=== PATIENT | female | born 1940 | race Caucasian/White ===

== ENCOUNTER 2019-03-11 13:23 | Inpatient (IN) | payer MEDICARE ==
[~2019-03-11] VITALS: Ht 165.1 cm; Wt 56.7 kg
[2019-03-11 14:25] LABS: BASOPHILS 0.1 % (0-2); HEMATOCRIT 39.7 % (36.0-48.0); HEMOGLOBIN 13.2 g/dL (12-16); IMMATURE GRANULOCYTES 0.4 % (0-5); LYMPHOCYTES 9.8 % (15-50); MCH 30.7 pg (26.0-34.0); MCHC 33.2 g/dL (31.0-37.0); MCV 92.3 fL (80.0-100.0); MEAN PLATELET VOLUME 8.6 fL (7.4-10.4); MONOCYTES 5.9 % (2-11); NEUTROPHILS 82.8 % (40-80); WBC 11.3 10x3/uL (4.8-10.8)
[2019-03-11 14:29] LABS: ALBUMIN 3.2 g/dL (3.4-5.0); ALKALINE PHOSPHATASE 69 U/L (46-116); ALT (SGPT) 28 U/L (10-68); BILIRUBIN - TOTAL 0.71 mg/dL (0.2-1.3); CALC OSMOLALITY 287 mosm/kg (275-300); CALCIUM 8.5 mg/dL (8.5-10.1); CARBON DIOXIDE 33.5 mmol/L (21.0-32.0); CHLORIDE - SERUM 107 mmol/L (98-107); CREATININE - SERUM 0.6 mg/dL (0.6-1.3); GLUCOSE 92 mg/dL (74-106); POTASSIUM - SERUM 4.3 mmol/L (3.5-5.1); PROTEIN - SERUM 5.7 g/dL (6.4-8.2); SODIUM 144 mmol/L (136-145); UREA NITROGEN 14 mg/dL (7-18); eGFR NON AFRICAN AMERICAN > 90 mL/min (90-120)
--- NOTE | 2019-03-11 14:31 | NUR ---
FALL BRACLET APPLIED AND YELLOW STAR APPLIED TO DOOR TO INDICATE PT IS FALL RISK
[2019-03-11] MEDS ORDERED: COREG6.25 MG PO (14:33)
[2019-03-11] MEDS ORDERED: ULTRAM50 MG PO (14:33)
[2019-03-11] MEDS ORDERED: TRAZODONE HCL150 MG PO (14:34)
[2019-03-11] MEDS ORDERED: LOMOTIL 2.5-0.1 EAC1 PO (14:34)
[2019-03-11 14:35] LABS: PLATELET COUNT 215 10x3/uL (130-400)
[2019-03-11] MEDS ORDERED: RESTORIL15 MG PO (14:35)
[2019-03-11] MEDS ORDERED: KLONOPIN0.5 MG PO (14:35)
[2019-03-11] MEDS ORDERED: LEXAPRO10 MG PO (14:35)
[2019-03-11] MEDS ORDERED: ROBAXIN500 MG PO (14:35)
[2019-03-11] MEDS ORDERED: BENTYL10 MG PO (14:36)
[2019-03-11] MEDS ORDERED: OXYBUTYNIN CHLOR5 MG PO (14:37)
[2019-03-11 14:50] LABS: APTT 28.7 SECONDS (22.8-39.4); INR 1.07 (0.85-1.17); PROTIME 13.4 SECONDS (11.6-15.0)
--- NOTE | 2019-03-11 16:25 | NUR ---
1620 PLACED 16FR GOMEZ CATH AND SENT URINE TO LAB,. PT TOLERATED WELL SURGON IN ROOM.
[2019-03-11 20:00] VITALS: BP 131/64
--- NOTE | 2019-03-11 23:21 | HP ---
PATIENT: GIANNA ANTUNEZ MEDICAL RECORD: [id number] ACCOUNT: [id number] LOCATION:D.[facility] [place] : 38 ADMISSION DATE: 03/11/19 PCP: ROJELIO LOO MD HISTORY AND PHYSICAL EXAMINATION DATE OF ADMISSION: 03/11/2019. CHIEF COMPLAINT: Hip pain. HISTORY OF PRESENT ILLNESS: This is a 78-year-old white female who drove herself to our office today. The patient is complaining of pain in her left hip. She was at [facility] this morning and was reaching up to take something off the shelf; the object started falling and hit her. She somehow lost her balance and fell to the floor injuring her left hip. The patient states that she was taken to her car in a wheelchair, but later understand 911 was called and they got there after she left. She drove her car to our office. She was basically picked up out of her car and brought into x-ray room where x-rays showed a left femoral neck fracture. EMS was then called to our office. She was transported to [facility] to be evaluated in the ER. CT of the pelvis without contrast showed a fracture of the left femoral neck with superior and anterior translation of distal fracture fragment. She is admitted into the hospital for treatment. PAST MEDICAL AND SURGICAL HISTORY: She has anxiety, reflux, hypertension, arthritis, insomnia, spinal stenosis in her lumbar spine from MRI in May 2013 and she has a redundant colon. PAST SURGICAL HISTORY: Appendectomy, hysterectomy, cataract extraction, benign breast biopsy and surgery, subtotal colectomy by Dr. Chávez on 11/03/2014 were 95 cm of colon was removed. She has had a total knee arthroplasty, right total hip arthroplasty, and cholecystectomy. ALLERGIES: SULFA. HOME MEDICATIONS: Lomotil 2 tablets 3 times a day p.r.n. diarrhea, carvedilol 3.125 one p.o. b.i.d., oxybutynin 5 mg twice a day, clonazepam 0.5 mg t.i.d. p.r.n. anxiety, methocarbamol 500 mg t.i.d. p.r.n. muscle spasms, escitalopram 20 mg once a day, tramadol 50 mg p.r.n. pain, trazodone 50 mg 1 p.o. at bedtime for sleep, temazepam 30 mg at bedtime for sleep, dicyclomine one capsule by mouth every 6 hours. HABITS: Former smoker. No alcohol or drug use. SOCIAL HISTORY: She is a retired schoolteacher, . Her son has had a long history of schizophrenia. She committed suicide, just in the last couple of months. FAMILY HISTORY: Her parents are . REVIEW OF SYSTEMS: GENERAL: She has had some weight loss due to the stress and anxiety of losing her son. HEENT: No particular sinus or allergy problems. RESPIRATORY: No COPD or emphysema diagnosis. CARDIAC: No history of coronary artery disease. HISTORY AND PHYSICAL [id number] GIANNA ANTUNEZ GASTROINTESTINAL: She had a redundant colon and had chronic constipation. After her subtotal colectomy, she had more of a problem with diarrhea. GENITOURINARY: She has urinary stress incontinence. MUSCULOSKELETAL: She has arthritis with hip and knee replacement. NEUROLOGIC: History of migraines. PSYCHIATRIC: She has depression and anxiety. PHYSICAL EXAMINATION: VITAL SIGNS: Temperature 97.6, pulse 55, respirations 18, blood pressure 135/65, and O2 sat 96%. GENERAL: She is complaining of some pain in her left hip. HEENT: Grossly within normal limits. NECK: Supple. No JVD or bruit. HEART: Regular rate and rhythm without murmur. LUNGS: Clear. ABDOMEN: Soft, nontender to palpation. EXTREMITIES: No edema. She has pain in the left hip. NEUROLOGIC: Essentially unremarkable. LABORATORY DATA: CBC with a white count of 11,300, hemoglobin 13.2, hematocrit 39.7. INR 1.07. Basic metabolic panel was unremarkable. Liver enzymes are unremarkable. Chest x-ray shows no acute process. CT of the abdomen and pelvis with fracture of the left femoral neck with superior and anterior translation of the distal fracture fragment. ASSESSMENT: 1. Fall with left hip fracture. 2. Hypertension. PLAN: She is admitted. Orthopedics has been consulted. She should be okay for surgery which will probably happen tomorrow. TRANSINT:[id number] Voice Confirmation ID: [id number] DOCUMENT ID: [id number] ROJELIO LOO MD at 2321 CC: [id number] DICTATION DATE: 03/11/191756 MUSEUM GUIDE: 03/11/[address] [facility] [address] [place] [address]
[2019-03-12] VITALS: BP 132/64
[2019-03-12 04:00] VITALS: BP 147/66
--- NOTE | 2019-03-12 04:34 | NUR ---
PATIENT IN BED ALERT AND ORENTED ABLE TO VOICE NEEDS AND WANTS TO STAFF. MORPHINE MANAGER DATA WAREHOUSE IN PLACE, LEFT FR WITH NS, FELL AND WAS ADMITTED FORT LEFT HIP FX. NPO. f/c IN PLACE AND PATEN WITH YELLOW/GABRIELE URINE TO BAG. SCD TO RIGHT LEG PLEXIE PULSE TO LEFT, FALL PERCAUSIONS IN PLACE. CALL TO ON CLL DR HADLEY TO INFORM UNABLE TO DO PETERSEN'S TRACTION ORDER TO D/C GIVEN WELL ORDER TO CONSULT RAIL SETTER FOR CLEARANCE FOR SURGERY IN AM. 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 ADMITED VIA DR LOO. O2 AT 2L N/C. RESTING WITH NO NEEDS INCENTIVE SPIROMETRY IN REACH AT BED SIDE CALL LIGHT IN REACH BED LOW.
[2019-03-12 06:32] LABS: BASOPHILS 0.1 % (0-2); EOSINOPHILS 0.8 % (0-7); HEMATOCRIT 41.7 % (36.0-48.0); HEMOGLOBIN 13.7 g/dL (12-16); IMMATURE GRANULOCYTES 0.2 % (0-5); MCH 30.4 pg (26.0-34.0); MCHC 32.9 g/dL (31.0-37.0); MCV 92.7 fL (80.0-100.0); MONOCYTES 7.6 % (2-11); NEUTROPHILS 81.3 % (40-80); PLATELET COUNT 211 10x3/uL (130-400); WBC 8.5 10x3/uL (4.8-10.8)
--- NOTE | 2019-03-12 06:59 | NUR ---
PATIENT C/O NECK AND BACK PAIN THIS AM,
[2019-03-12 07:15] LABS: ALBUMIN 2.7 g/dL (3.4-5.0); ALKALINE PHOSPHATASE 62 U/L (46-116); ALT (SGPT) 26 U/L (10-68); BILIRUBIN - TOTAL 1.17 mg/dL (0.2-1.3); CALC OSMOLALITY 279 mosm/kg (275-300); CALCIUM 8.4 mg/dL (8.5-10.1); CARBON DIOXIDE 29.7 mmol/L (21.0-32.0); CHLORIDE - SERUM 105 mmol/L (98-107); GLUCOSE 112 mg/dL (74-106); POTASSIUM - SERUM 4.1 mmol/L (3.5-5.1); PROTEIN - SERUM 5.5 g/dL (6.4-8.2); SODIUM 140 mmol/L (136-145); UREA NITROGEN 12 mg/dL (7-18)
[2019-03-12 07:24] LABS: CREATININE - SERUM 0.4 mg/dL (0.6-1.3); eGFR NON AFRICAN AMERICAN > 90 mL/min (90-120)
--- NOTE | 2019-03-12 07:58 | NUR ---
PT RESTING IN BED. CO OF NECK/BACK PAIN. EDISON GORDON NOTIFIED DR JEFFRIES. NPO FOR SURGERY. NO S/S OF ACUTE DISTRESS. CL IN PLACE.
--- NOTE | 2019-03-12 08:00 | NUR ---
ADDENDUM TO PREVIOUS NOTE. DR JEFFRIES PUT IN ORDER FOR CERVICAL/SPINE XRAY.
[2019-03-12 08:19] VITALS: BP 154/66
--- NOTE | 2019-03-12 13:44 | NUR ---
DR POTTS HERE TO POSITION PATIENT ON HANA TABLE-SH FEET PADDED WITH CAST PADDING BEFORE PLACING BOOTS ON
--- NOTE | 2019-03-12 15:27 | NUR ---
PT REMAINS ASLEEP, OPA REMAINS IN PLACE
--- NOTE | 2019-03-12 15:32 | NUR ---
PT STIMULATED WITH COLD CLOTH, INITIALLY WITHOUT RESULT. PT DID OPEN HER EYES BUT IMMEDIATELY WENT BACK TO SLEEP.
--- NOTE | 2019-03-12 15:45 | NUR ---
PT BEGINNING TO RESPOND, OPA REMOVED, SPO2 99% ON 6LPM VIA SM.
--- NOTE | 2019-03-12 15:50 | NUR ---
PT SHAKES HEAD "NO" WHEN ASKED IF SHE WAS HAVING ANY PAIN. PT SPO2 NOW 100% ON RA.
[2019-03-12 16:19] VITALS: BP 134/57
--- NOTE | 2019-03-12 18:43 | NUR ---
PT RESTING IN BED. POOR APPETITE. NO S/S OF ACUTE DISTRESS. CL IN PLACE.
[2019-03-12 20:00] VITALS: BP 102/63
--- NOTE | 2019-03-12 20:00 | NUR ---
ALERT CONFUSED RESTING IN BED, DOES NOT REMEMBER HAVING HIP SURGERY TODAY KEEPS SAYING NO THEY ARE GOING TO DO THAT TOMORROW, SHOWED DRESSING ON LEFT HIP, DENIES PAIN ABLE TO MOVE TOES ON LEFT FOOT REPORTS FEELING TOUCH ABOVE KNEE, GOMEZ CATH DRAINING GABRIELE URINE, SEE SHIFT ASSESSMENT, O2 IN USE N/C,RESP UNLABORED, CALL LIGHT IN REACH
[2019-03-13 04:30] VITALS: BP 123/56
[2019-03-13 06:42] LABS: CALC OSMOLALITY 277 mosm/kg (275-300); CALCIUM 7.7 mg/dL (8.5-10.1); CARBON DIOXIDE 30.3 mmol/L (21.0-32.0); CHLORIDE - SERUM 104 mmol/L (98-107); CREATININE - SERUM 0.5 mg/dL (0.6-1.3); GLUCOSE 113 mg/dL (74-106); POTASSIUM - SERUM 4.3 mmol/L (3.5-5.1); SODIUM 140 mmol/L (136-145); eGFR NON AFRICAN AMERICAN > 90 mL/min (90-120)
[2019-03-13 06:43] LABS: UREA NITROGEN 8 mg/dL (7-18)
--- NOTE | 2019-03-13 07:35 | NUR ---
PT RESTING IN BED WITH EYES CLOSED, EASILY AROUSED TO VOICE. CURRENTLY RCVING 4L VIA NC. IV LOCATED TO LEFT FOREARM RUNNING NS@125. NO S/S OF DISTRESS AT THIS TIME, WILL CONT TO MONITOR.
[2019-03-13 08:47] VITALS: BP 132/62
[2019-03-13 12:50] VITALS: BP 93/46
--- NOTE | 2019-03-13 14:51 | MORECARE ---
CASE MANAGEMENT DISCHARGE SUMMARY PATIENT: GIANNA ANTUNEZ J UNIT: [id number] ADM DATE: 03/11/19 AGE: 78 : 39 SEX: F ROOM/BED: D.2211 AUTHOR: MAXIMILIANO LOPEZ PHYSICIAN: REFERRING PHYSICIAN: ROJELIO LOO MD DATE OF SERVICE: 03/13/19 Discharge Plan Patient Name: GIANNA ANTUNEZ [facility] [facility] 1940 Planned Disposition: Home Health Service Anticipated Discharge Date: Discharge Date: Expected LOS: Initial Reviewer: [email or web address] Initial Review Date: 03/11/2019 Generated: 03/13/19 3:51 pm DCPIA - Discharge Planning Initial Assessment Updated by [email or web address]: Marlin Macedo on 03/13/19 2:48 pm * Is the patient Alert and Oriented? Yes * How many steps to enter\exit or inside your home? * PCP EZE * Pharmacy [facility] * Preadmission Environment Independent [facility] Apartment * Other Environment [facility] * ADLs Independent * Equipment Cane * List name and contact numbers for known caregivers / representatives who currently or will assist patient after discharge: TERENCE LOPEZ [phone] * Verbal permission to speak to the caregivers and representatives has been obtained from the patient. N/A * Community resources currently utilized Other * Please name any agencies selected above. [facility] * Additional services required to return to the preadmission environment? Yes * Can the patient safely return to the preadmission environment? No * Has this patient been hospitalized within the prior 30 days at any hospital? No Patient Name: GIANNA ANTUNEZ Page [id number] at 1451 All edits/amendments must be made on the electronic document DICTATION DATE: 03/13/191450 TRUCK RENTAL MANAGER: CLEO 03/13/19 145 RPT#: [id number] DC DATE: STATUS: ADM IN [facility] [address] [place] [address] END OF REPORT
--- NOTE | 2019-03-13 15:00 | MORECARE ---
CASE MANAGEMENT DISCHARGE SUMMARY PATIENT: GIANNA ANTUNEZ UNIT: [id number] ADM DATE: 03/11/19 AGE: 78 : 39 SEX: F ROOM/BED: D.2211 AUTHOR: MAXIMILIANO LOPEZ PHYSICIAN: REFERRING PHYSICIAN: ROJELIO LOO MD DATE OF SERVICE: 03/13/19 Discharge Plan Patient Name: GIANNA ANTUNEZ Facility: [facility]:[place] : 1940 Planned Disposition: Home Health Service Anticipated Discharge Date: Discharge Date: Expected LOS: Initial Reviewer: [email or web address] Initial Review Date: 03/11/2019 Generated: 03/13/19 4:00 pm Comments DCP- Discharge Planning Updated by [email or web address]: Marlin Macedo on 03/13/19 1:[address] Patient Name: GIANNA ANTUNEZ Admission Status: ER Accout number: [id number] Admission Date: 03-11-2019 : 1940 Admission Diagnosis: Attending: ROJELIO LOO Current LOS: 2 Anticipated DC Date: Planned Disposition: Home Health Service Primary Insurance: [facility] MEDICARE SOLUTIONS Discharge Planning Comments: CM met with patient to complete initial dc planning assessment. CM educated patient on the CM role and verbal consent given by patient to complete assessment. Patient lives at home at [facility]. At discharge patient talked about going home and feels this is a safe discharge. I am not sure that will be able to happen. She did not understand about inpatient rehab vs home with home health. She would like to do PT at Dr Loo's office. CM discussed availability of home health, rehab services, and medical equipment. She has a cane at home. Will see how she does with PT and OT. Patient denied known discharge needs at this time. CM will continue to follow and will assist as needed with dc plans/needs. Heat Treating Bluer: Marlin Macedo DCPIA - Discharge Planning Initial Assessment Updated by [email or web address]: Marlin Macedo on 03/13/19 2:48 pm * Is the patient Alert and Oriented? Yes * How many steps to enter\exit or inside your home? * PCP EZE * [facility]acy [facility] * Preadmission Environment [facility] * Other Environment [facility] * ADLs Independent * Equipment Cane * List name and contact numbers for known caregivers / representatives who currently or will assist patient after discharge: TERENCE LOPEZ [phone] * Verbal permission to speak to the caregivers and representatives has been obtained from the patient. N/A * Community resources currently utilized Other * Please name any agencies selected above. [facility] * Additional services required to return to the preadmission environment? Yes * Can the patient safely return to the preadmission environment? No * Has this patient been hospitalized within the prior 30 days at any hospital? No Last DP export: 03/13/19 1:51 p Patient Name: GIANNA ANTUNEZ Page [id number] at 1500 All edits/amendments must be made on the electronic document DICTATION DATE: 03/13/19 1500 CLINICAL DATA RESEARCH: CLEO 03/13/19 1500 RPT#: [id number] DC DATE: STATUS: ADM IN [facility] [address] [place] [address] END OF REPORT
[2019-03-13 16:45] VITALS: BP 120/51
[2019-03-13 20:00] VITALS: BP 119/57
--- NOTE | 2019-03-13 20:00 | NUR ---
ALERT CONTINUES TO HAVE SOME CONFUSION REGARDING SITUATION, DRESSING TO LEFT HIP C/D/I, ABLE TO MOVE TOES AND LEFT FOOT, GOOD SENSATION TO TOUCH, DENIES PAIN EXCEPT WITH MOVEMENT, SEE SHIFT ASSESSMENT, CALL LIGHT IN REACH
[2019-03-14] VITALS: BP 104/49
[2019-03-14 04:00] VITALS: BP 134/55
[2019-03-14 06:06] LABS: BASOPHILS 0 % (0-2); EOSINOPHILS 0.6 % (0-7); IMMATURE GRANULOCYTES 0.2 % (0-5); LYMPHOCYTES 12.6 % (15-50); MCHC 33.7 g/dL (31.0-37.0); MCV 92.1 fL (80.0-100.0); MEAN PLATELET VOLUME 8.7 fL (7.4-10.4); MONOCYTES 9.5 % (2-11); NEUTROPHILS 77.1 % (40-80); RDW 13.6 % (11.5-14.5)
[2019-03-14 06:17] LABS: HEMATOCRIT 27.9 % (36.0-48.0); HEMOGLOBIN 9.4 g/dL (12-16); PLATELET COUNT 164 10x3/uL (130-400); RBC 3.03 10x6/uL (4.00-5.40); WBC 6.2 10x3/uL (4.8-10.8)
--- NOTE | 2019-03-14 07:30 | NUR ---
REC'D IN BED AWAKE AND ALERT. RESP EVEN AND UNLABORED WITH NO DISTRESS NOTED. PT DOES HAVE NOTED CONFUSION. NO C/O NOTED OR VOICED. ASSESSMENT COMPLETED. C/L IN REACH AT BEDSIDE.
[2019-03-14 08:47] VITALS: BP 141/64
--- NOTE | 2019-03-14 10:01 | NUR ---
Rehab Prescreening Consult recieved and the chart has been reviewed. She is a good rehab candidate, but is [facility] managed Medicare and will require a preauth. All information will be submitted to them for their review. CM has been informed. Teresa Vera RN Clinical Liaison, Rehab
[2019-03-14 13:20] VITALS: BP 103/53
--- NOTE | 2019-03-14 15:06 | NUR ---
OT NOTE: PT REMAINS VERY CONFUSED. SHE IS ACCURATE WITH DETAILS OF PAST HX, HOWEVER, MEMORY AND COGNITION ARE POOR. PT CONT TO REQUIRE MAX ASSIST WITH BED MOB AND MAX ASSIST WITH FUNCTIONAL TRANSERS. MAX ASSIST WITH LE DRESSING ADN MIN ASSIST WITH SIMPLE GROOMING TASKS.. REQUIRES FREQ CUES TO STAY ON TASK. RECOMMEND IP REHAB TO IMPROVE ADLS, MOBILITY, AND COGNITION. VIOLETA GUADARRAMA, OTR/L
[2019-03-14 16:07] VITALS: BP 108/48
--- NOTE | 2019-03-14 18:43 | NUR ---
I have reviewed this patient and I concur with the Shift Assessment completed by the Licensed Practical Nurse today this shift.
--- NOTE | 2019-03-14 19:15 | NUR ---
RECEIVED CARE FROM DAY NURSE. LYING IN BED CALLING FOR HELP. BED SOILED AND CLEANED AT THIS TIME. CALL LIGHT AT SIDE. NO OTHER NEEDS VOICED AT THIS TIME. CALL LIGHT AT SIDE. GOMEZ TO GRAVITY. IV INFUSING PER ORDER TO LEFT FA.
[2019-03-14 20:00] VITALS: BP 120/52
[2019-03-15] VITALS (7 sets, daily range): BP systolic 90–133; BP diastolic 40–62
[2019-03-15 06:28] LABS: BASOPHILS 0.2 % (0-2); EOSINOPHILS 1.5 % (0-7); HEMATOCRIT 25.7 % (36.0-48.0); HEMOGLOBIN 8.6 g/dL (12-16); IMMATURE GRANULOCYTES 0.2 % (0-5); LYMPHOCYTES 15.4 % (15-50); MCH 30.5 pg (26.0-34.0); MCHC 33.5 g/dL (31.0-37.0); MCV 91.1 fL (80.0-100.0); MEAN PLATELET VOLUME 8.7 fL (7.4-10.4); NEUTROPHILS 72.7 % (40-80); PLATELET COUNT 178 10x3/uL (130-400); RBC 2.82 10x6/uL (4.00-5.40); RDW 13.6 % (11.5-14.5); WBC 5.3 10x3/uL (4.8-10.8)
--- NOTE | 2019-03-15 10:32 | NUR ---
PATIENT IS LEANING TO HER LEFT SIDE AND FAVORS LEFT SIDE TODAY AND PT STATES PT IS MORE CONFUSED AND WEAK TODAY THAN YESTERDAY, PT SITTING IN CHAIR AT BEDSIDE ASLEEP, CONTINUE TO MONITOR PT CONDITION,
--- NOTE | 2019-03-15 16:19 | NUR ---
I have reviewed this patient and I concur with the Shift Assessment completed by the Licensed Practical Nurse today this shift.
--- NOTE | 2019-03-15 17:43 | NUR ---
I have reviewed this patient and I concur with the Shift Assessment completed by the Licensed Practical Nurse today this shift.
--- NOTE | 2019-03-15 19:15 | NUR ---
RECEIVED CARE FROM DAY NURSE. LYING IN BED. NO NEEDS VOICED AT THIS TIME. CALL LIGHT AT SIDE. IV INFUSING PER ORDER TO PATENT RIGHT FA. GOMEZ TO GRAVITY.
[2019-03-16] VITALS: BP 99/45
[2019-03-16 04:00] VITALS: BP 143/66
[2019-03-16 06:32] LABS: BASOPHILS 0.2 % (0-2); EOSINOPHILS 1.9 % (0-7); HEMATOCRIT 29.8 % (36.0-48.0); HEMOGLOBIN 9.9 g/dL (12-16); IMMATURE GRANULOCYTES 0.2 % (0-5); LYMPHOCYTES 17.1 % (15-50); MCH 30.1 pg (26.0-34.0); MCHC 33.2 g/dL (31.0-37.0); MCV 90.6 fL (80.0-100.0); MEAN PLATELET VOLUME 8.8 fL (7.4-10.4); MONOCYTES 8.7 % (2-11); NEUTROPHILS 71.9 % (40-80); PLATELET COUNT 205 10x3/uL (130-400); RBC 3.29 10x6/uL (4.00-5.40); RDW 13.9 % (11.5-14.5); WBC 5.4 10x3/uL (4.8-10.8)
[2019-03-16 11:57] VITALS: BP 105/50
--- NOTE | 2019-03-16 16:31 | NUR ---
I have reviewed this patient and I concur with the Shift Assessment completed by the Licensed Practical Nurse today this shift.
[2019-03-16 16:48] VITALS: BP 148/71
--- NOTE | 2019-03-16 19:15 | NUR ---
RECEIVED CARE FROM DAY NURSE. LYING IN BED WATCHING TV. REPORTS NO NEEDS AT THIS TIME. CALL LIGHT AT SIDE. IV INFUSING PER ORDER TO PATENT RIGHT FA. DRESSING TO LEFT HIP CDI. GOMEZ TO GRAVITY.
[2019-03-16 21:00] VITALS: BP 121/60
--- NOTE | 2019-03-17 00:59 | NUR ---
I have reviewed this patient and I concur with the Shift Assessment completed by the Licensed Practical Nurse today this shift.
[2019-03-17 01:33] VITALS: BP 110/84
[2019-03-17 04:00] VITALS: BP 112/74
[2019-03-17 08:15] VITALS: BP 150/77
[2019-03-17 12:15] VITALS: BP 116/80
--- NOTE | 2019-03-17 14:43 | MORECARE ---
CASE MANAGEMENT DISCHARGE SUMMARY PATIENT: GIANNA ANTUNEZ UNIT: [id number] ADM DATE: 03/11/19 AGE: 78 : 39 SEX: F ROOM/BED: D.2211 AUTHOR: MAXIMILIANO LOPEZ PHYSICIAN: REFERRING PHYSICIAN: ROJELIO LOO MD DATE OF SERVICE: 03/17/19 Discharge Plan Patient Name: GIANNA ANTUNEZ Facility: [facility]:[place] : 1940 Planned Disposition: Home Health Service Anticipated Discharge Date: Discharge Date: Expected LOS: Initial Reviewer: [email or web address] Initial Review Date: 03/11/2019 Generated: 03/17/19 3:43 pm Comments DCP- Discharge Planning Updated by [email or web address]: Marlin Macedo on 03/17/19 1:[address] PATIENT WAS DENIED INPATIENT REHAB, SPOKE WITH PATIENT AND SHE WOULD LIKE TO TRY [facility], ALEJANDRA SIGNED AND PLACED IN CHART WILL SEND OVER REFERRAL DCP- Discharge Planning Updated by [email or web address]: Marlin Macedo on 03/13/19 1:[address] Patient Name: GIANNA ANTUNEZ Admission Status: ER Accout number: [id number] Admission Date: 03-11-2019 : 1940 Admission Diagnosis: Attending: ROJELIO LOO Current LOS: 2 Anticipated DC Date: Planned Disposition: Home Health Service Primary Insurance: [facility] MEDICARE SOLUTIONS Discharge Planning Comments: CM met with patient to complete initial dc planning assessment. CM educated patient on the CM role and verbal consent given by patient to complete assessment. Patient lives at home at [facility]. At discharge patient talked about going home and feels this is a safe discharge. I am not sure that will be able to happen. She did not understand about inpatient rehab vs home with home health. She would like to do PT at Dr Loo's office. CM discussed availability of home health, rehab services, and medical equipment. She has a cane at home. Will see how she does with PT and OT. Patient denied known discharge needs at this time. CM will continue to follow and will assist as needed with dc plans/needs. Brush Holder Inspector: Marlin Macedo DCPIA - Discharge Planning Initial Assessment Updated by [email or web address]: Marlin Macedo on 03/13/19 2:48 pm * Is the patient Alert and Oriented? Yes * How many steps to enter\exit or inside your home? * PCP EZE * Pharmacy [facility] * Preadmission Environment Independent [facility] Apartment * Other Environment [facility] * ADLs Independent * Equipment Cane * List name and contact numbers for known caregivers / representatives who currently or will assist patient after discharge: TERENCE LOPEZ [phone] * Verbal permission to speak to the caregivers and representatives has been obtained from the patient. N/A * Community resources currently utilized Other * Please name any agencies selected above. [facility] * Additional services required to return to the preadmission environment? Yes * Can the patient safely return to the preadmission environment? No * Has this patient been hospitalized within the prior 30 days at any hospital? No Last DP export: 03/13/19 2:00 p Patient Name: GIANNA ANTUNEZ Page [phone] at 1443 All edits/amendments must be made on the electronic document DICTATION DATE: 03/17/19 144 MEDICAL PHYSICS RESEARCHER: CLEO 03/17/19 144 RPT#: [id number] DC DATE: STATUS: ADM IN [facility] [address] [place] [address] END OF REPORT
--- NOTE | 2019-03-17 14:50 | MORECARE ---
CASE MANAGEMENT DISCHARGE SUMMARY PATIENT: GIANNA ANTUNEZ UNIT: [id number] ADM DATE: 03/11/19 AGE: 78 : 39 SEX: F ROOM/BED: D.2211 AUTHOR: MAXIMILIANO LOPEZ PHYSICIAN: REFERRING PHYSICIAN: ROJELIO LOO MD DATE OF SERVICE: 03/17/19 Discharge Plan Patient Name: GIANNA ANTUNEZ Facility: [facility]:[place] : 1940 Planned Disposition: Home Health Service Anticipated Discharge Date: Discharge Date: Expected LOS: Initial Reviewer: [email or web address] Initial Review Date: 03/11/2019 Generated: 03/17/19 3:50 pm Comments DCP- Discharge Planning Updated by [email or web address]: Marlin Macedo on 03/17/19 1:[address] PATIENT WAS DENIED INPATIENT REHAB, SPOKE WITH PATIENT AND SHE WOULD LIKE TO TRY [facility], ALEJANDRA SIGNED AND PLACED IN CHART WILL SEND OVER REFERRAL DCP- Discharge Planning Updated by [email or web address]: Marlin Macedo on 03/13/19 1:[address] Patient Name: GIANNA ANTUNEZ Admission Status: ER Accout number: [id number] Admission Date: 03-11-2019 : 1940 Admission Diagnosis: Attending: ROJELIO LOO Current LOS: 2 Anticipated DC Date: Planned Disposition: Home Health Service Primary Insurance: [facility] MEDICARE SOLUTIONS Discharge Planning Comments: CM met with patient to complete initial dc planning assessment. CM educated patient on the CM role and verbal consent given by patient to complete assessment. Patient lives at home at [facility]. At discharge patient talked about going home and feels this is a safe discharge. I am not sure that will be able to happen. She did not understand about inpatient rehab vs home with home health. She would like to do PT at Dr Loo's office. CM discussed availability of home health, rehab services, and medical equipment. She has a cane at home. Will see how she does with PT and OT. Patient denied known discharge needs at this time. CM will continue to follow and will assist as needed with dc plans/needs. Clothing Examiner: Marlin Macedo DCPIA - Discharge Planning Initial Assessment Updated by [email or web address]: Marlin Macedo on 03/13/19 2:48 pm * Is the patient Alert and Oriented? Yes * How many steps to enter\exit or inside your home? * PCP EZE * Pharmacy [facility] * Preadmission Environment Independent [facility] Apartment * Other Environment [place] * ADLs Independent * Equipment Cane * List name and contact numbers for known caregivers / representatives who currently or will assist patient after discharge: TERENCE LOPEZ [phone] * Verbal permission to speak to the caregivers and representatives has been obtained from the patient. N/A * Community resources currently utilized Other * Please name any agencies selected above. [place] * Additional services required to return to the preadmission environment? Yes * Can the patient safely return to the preadmission environment? No * Has this patient been hospitalized within the prior 30 days at any hospital? No External Providers External Provider: [facility] Next Contact Date: Service Request Date: Service Type: Resolution: Reviewer: Comments: Coverage Notice Reviewer: [email or web address] - Marlin Macedo Notice Issued Date-Time: 03/17/2019 14:45 Notice Type: Patient Choice Letter Notice Delivered To: Patient Relationship to Patient: Puffer Tender Name: Delivery Method: HAND - Hand Delivered Marlene Days: Prior Verbal Notification: Recipient Understood Notice: Yes Recipient Signature: Yes Med Rec Note Co-signed by Attending: Coverage Notice Comment: Last DP export: 03/17/19 1:43 p Patient Name: GIANNA ANTUNEZ Page [id number] at 1450 All edits/amendments must be made on the electronic document DICTATION DATE: 03/17/19 145 CUSTOMER MARKETING MANAGER: CLEO 03/17/19 1450 RPT#: [id number] DC DATE: STATUS: ADM IN [facility] [address] [place] [address] END OF REPORT
--- NOTE | 2019-03-17 14:55 | NUR ---
OT NOTE: PT ATTEMPTED SIT TO STAND, PT COMPLETED SITTING BALANCE AND POSITIONING WITH SBA. PT COMPLETED HAIR GROOMING WITH SET UP. PT COMPLETED FACE WASHING WITH SET UP. PT COMPLETED BUE AROM AXS. PT WAS EASILY DISTRACTED AND REQUIRED CUES FOR ATTENTION TO TASK. NURSING NOTIFIED. THANK YOU, ALFA GUERRA
--- NOTE | 2019-03-17 16:37 | MORECARE ---
CASE MANAGEMENT DISCHARGE SUMMARY PATIENT: GIANNA ANTUNEZ UNIT: [id number] ADM DATE: 03/11/19 AGE: 78 : 39 SEX: F ROOM/BED: D.2211 AUTHOR: MAXIMILIANO LOPEZ PHYSICIAN: REFERRING PHYSICIAN: ROJELIO LOO MD DATE OF SERVICE: 03/17/19 Discharge Plan Patient Name: GIANNA ANTUNEZ Facility: [facility]:[place] : 1940 Planned Disposition: Home Health Service Anticipated Discharge Date: Discharge Date: Expected LOS: Initial Reviewer: [email or web address] Initial Review Date: 03/11/2019 Generated: 03/17/19 5:36 pm Comments DCP- Discharge Planning Updated by [id number]: Marlin Macedo on 03/17/19 1:[address] PATIENT WAS DENIED INPATIENT REHAB, SPOKE WITH PATIENT AND SHE WOULD LIKE TO TRY [facility], ALEJANDRA SIGNED AND PLACED IN CHART WILL SEND OVER REFERRAL DCP- Discharge Planning Updated by [email or web address]: Marlin Macedo on 03/13/19 1:[address] Patient Name: GIANNA ANTUNEZ Admission Status: ER Accout number: [id number] Admission Date: 03-11-2019 : 1940 Admission Diagnosis: Attending: ROJELIO LOO Current LOS: 2 Anticipated DC Date: Planned Disposition: Home Health Service Primary Insurance: [facility] MEDICARE SOLUTIONS Discharge Planning Comments: CM met with patient to complete initial dc planning assessment. CM educated patient on the CM role and verbal consent given by patient to complete assessment. Patient lives at home at [facility]. At discharge patient talked about going home and feels this is a safe discharge. I am not sure that will be able to happen. She did not understand about inpatient rehab vs home with home health. She would like to do PT at Dr Loo's office. CM discussed availability of home health, rehab services, and medical equipment. She has a cane at home. Will see how she does with PT and OT. Patient denied known discharge needs at this time. CM will continue to follow and will assist as needed with dc plans/needs. Power Lineman Technician: Marlin Macedo DCPIA - Discharge Planning Initial Assessment Updated by [email or web address]: Marlin Macedo on 03/13/19 2:48 pm * Is the patient Alert and Oriented? Yes * How many steps to enter\exit or inside your home? * PCP EZE * Pharmacy [facility] * Preadmission Environment Independent [facility] Apartment * Other Environment [facility] * ADLs Independent * Equipment Cane * List name and contact numbers for known caregivers / representatives who currently or will assist patient after discharge: TERENCE LOPEZ [phone] * Verbal permission to speak to the caregivers and representatives has been obtained from the patient. N/A * Community resources currently utilized Other * Please name any agencies selected above. [facility] * Additional services required to return to the preadmission environment? Yes * Can the patient safely return to the preadmission environment? No * Has this patient been hospitalized within the prior 30 days at any hospital? No Coverage Notice Reviewer: [id number] - Marlin Macedo Notice Issued Date-Time: 03/17/2019 14:45 Notice Type: Patient Choice Letter Notice Delivered To: Patient Relationship to Patient: Concert Singer Name: Delivery Method: HAND - Hand Delivered Marlene Days: Prior Verbal Notification: Recipient Understood Notice: Yes Recipient Signature: Yes Med Rec Note Co-signed by Attending: Coverage Notice Comment: Last DP export: 03/17/19 1:50 p Patient Name: GIANNA ANTUNEZ Page [id number] at 1637 All edits/amendments must be made on the electronic document DICTATION DATE: 03/17/19 1636 SIGN CARPENTER: CLEO 03/17/19 1636 RPT#: [id number] DC DATE: STATUS: ADM IN [facility] [address] [place] [address] END OF REPORT
[2019-03-17 20:34] VITALS: BP 128/61
[2019-03-18 01:07] VITALS: BP 115/50
[2019-03-18 04:59] VITALS: BP 120/66
--- NOTE | 2019-03-18 06:44 | NUR ---
I have reviewed this patient and I concur with the Shift Assessment completed by the Licensed Practical Nurse today this shift.
[2019-03-18 08:33] VITALS: BP 146/59
--- NOTE | 2019-03-18 12:14 | MORECARE ---
CASE MANAGEMENT DISCHARGE SUMMARY PATIENT: GIANNA ANTUNEZ UNIT: [id number] ADM DATE: 03/11/19 AGE: 78 : 39 SEX: F ROOM/BED: D.2211 AUTHOR: MAXIMILIANO LOPEZ PHYSICIAN: REFERRING PHYSICIAN: ROJELIO LOO MD DATE OF SERVICE: 03/18/19 Discharge Plan Patient Name: GIANNA ANTUNEZ Facility: [facility]:[place] : 1940 Planned Disposition: Home Health Service Anticipated Discharge Date: Discharge Date: Expected LOS: Initial Reviewer: [email or web address] Initial Review Date: 03/11/2019 Generated: 03/18/19 1:14 pm Comments DCP- Discharge Planning Updated by [email or web address]: Marlin Macedo on 03/18/19 11:[address]AT WITH [facility] STATED THAT THEY ARE WAITING ON [facility]. WHEN THEY RECEIVE AUTH SHE WILL CALL ME. I EXPLAINED TO HER THAT I HAVE DC ORDERS CM TO FOLLOW IMM WAS SERVED AND EXPLAINED TO PATIENT THIS AM AT 0940. COPY GIVEN TO HER AND ALSO PLACED IN CHART DCP- Discharge Planning Updated by [email or web address]: Marlin Macedo on 03/17/19 1:[address] PATIENT WAS DENIED INPATIENT REHAB, SPOKE WITH PATIENT AND SHE WOULD LIKE TO TRY [facility], ALEJANDRA SIGNED AND PLACED IN CHART WILL SEND OVER REFERRAL DCP- Discharge Planning Updated by [email or web address]: Marlin Macedo on 03/13/19 1:[address] Patient Name: GIANNA ANTUNEZ Admission Status: ER Accout number: [id number] Admission Date: 03-11-2019 : 1940 Admission Diagnosis: Attending: ROJELIO LOO Current LOS: 2 Anticipated DC Date: Planned Disposition: Home Health Service Primary Insurance: [facility] MEDICARE SOLUTIONS Discharge Planning Comments: CM met with patient to complete initial dc planning assessment. CM educated patient on the CM role and verbal consent given by patient to complete assessment. Patient lives at home at [facility]. At discharge patient talked about going home and feels this is a safe discharge. I am not sure that will be able to happen. She did not understand about inpatient rehab vs home with home health. She would like to do PT at Dr Loo's office. CM discussed availability of home health, rehab services, and medical equipment. She has a cane at home. Will see how she does with PT and OT. Patient denied known discharge needs at this time. CM will continue to follow and will assist as needed with dc plans/needs. Rubber Tile Floor Layer: Marlin Macedo DCPIA - Discharge Planning Initial Assessment Updated by [email or web address]: Marlin Macedo on 03/13/19 2:48 pm * Is the patient Alert and Oriented? Yes * How many steps to enter\exit or inside your home? * PCP EZE * Pharmacy [facility] * Preadmission Environment Independent [facility] Apartment * Other Environment [facility] * ADLs Independent * Equipment Cane * List name and contact numbers for known caregivers / representatives who currently or will assist patient after discharge: TERENCE JESSICA [phone] * Verbal permission to speak to the caregivers and representatives has been obtained from the patient. N/A * Community resources currently utilized Other * Please name any agencies selected above. [facility] * Additional services required to return to the preadmission environment? Yes * Can the patient safely return to the preadmission environment? No * Has this patient been hospitalized within the prior 30 days at any hospital? No Coverage Notice Reviewer: [email or web address] Marcus Macedo Notice Issued Date-Time: 03/17/2019 14:45 Notice Type: Patient Choice Letter Notice Delivered To: Patient Relationship to Patient: Patient Relations Manager Name: Delivery Method: HAND - Hand Delivered Marlene Days: Prior Verbal Notification: Recipient Understood Notice: Yes Recipient Signature: Yes Med Rec Note Co-signed by Attending: Coverage Notice Comment: Reviewer: [id number] Marcus Macedo Notice Issued Date-Time: 03/18/2019 9:40 Notice Type: IM Discharge Notice Notice Delivered To: Patient Relationship to Patient: Patient Relations Manager Name: Delivery Method: HAND - Hand Delivered Marlene Days: Prior Verbal Notification: Recipient Understood Notice: Yes Recipient Signature: Yes Med Rec Note Co-signed by Attending: Coverage Notice Comment: Last DP export: 03/17/19 3:37 p Patient Name: GIANNA ANTUNEZ Page [id number] at 1214 All edits/amendments must be made on the electronic document DICTATION DATE: 03/18/191213 COACH TOUR DRIVER: CLEO 03/18/191213 RPT#: [id number] DC DATE: STATUS: ADM IN [facility] [address] [facility] [place] [address] END OF REPORT
[2019-03-18 13:30] VITALS: BP 120/59
[2019-03-18 15:07] VITALS: Ht 165.1 cm; Wt 56.7 kg
--- NOTE | 2019-03-18 15:28 | NUR ---
OT NOTE: PT REQUIRED MAX A FOR POSITIONING . PT COMPLETED SITTING BALANCE WITH SBA/CGA, PT COMPLETED GROOMING TASKS WITH SET UP. PT IS CONFUSED AT TIMES AND REQUIRED VERBAL CUES FOR ATTENTION TO TASK. THANK YOU, ALFA GUERRA
[2019-03-18 18:24] VITALS: BP 149/64
--- NOTE | 2019-03-18 19:44 | NUR ---
I have reviewed this patient and I concur with the Shift Assessment completed by the Licensed Practical Nurse today this shift.
--- NOTE | 2019-03-18 20:45 | NUR ---
A&O X 4. PT IS AGITATED AND FORGETFUL. REPORTS SHE HAS BEEN LAYING IN HER BM FOR OVER AN HOUR. INFORMED PT SHE WAS CLEAN WHEN FIRST ASSESSED AT 1930. AND SHE WAS CLEAN BY AID AROUND 1999. [facility] PROVIDED, BUTT PASTE APPLIED TO COCCYX AREA. PT STATES SHE HASN'T BEEN RECIEVING HER LOMOTIL AT ALL DURING HER HOSPITAL STAY. INFORMED SHE HAS RECIEVED IT NEARLY EVERY 4 HOURS, PT DENIED. WHEN INFORMING PT WHAT MEDICATIONS SHE WAS RECEIVING AT THIS TIME, SHE STATED, "YOU DON'T HAVE TO TELL ME WHAT THEY ARE, I KNOW WHAT I TAKE." ASSURED PT HER LOMOTIL WAS IN THIS ROUND OF MEDS. PT DID NOT RESPOND. WILL CONTINUE TO MONITOR.
[2019-03-18 21:28] VITALS: BP 130/62
[2019-03-19 01:13] VITALS: BP 130/64
--- NOTE | 2019-03-19 02:17 | NUR ---
I have reviewed this patient and I concur with the Shift Assessment completed by the Licensed Practical Nurse today this shift.
[2019-03-19 05:45] VITALS: BP 170/67
--- NOTE | 2019-03-19 08:00 | NUR ---
PT RESTING IN BED. NO ACUTE DISTRESS NOTED AT THIS TIME. PT DENIES PAIN AT THIS TIME. IV TO LEFT FOREARM WITH NS @ 50ML/HR INFUSING VIA PUMP. SITE WITHOUT REDNESS OR EDEMA. DRESSING TO LEFT HIP C/D/I. F/C PATENT TO GRAVITY DRAINING YELLOW URINE. PT DENEIS FURTHER NEEDS AT THIS TIME. CL WITHIN REACH. ENCOURAGED TO CALL WITH NEEDS. CONTINUE POC
[2019-03-19 08:11] VITALS: BP 121/64
[2019-03-19 13:38] VITALS: BP 95/44
--- NOTE | 2019-03-19 14:04 | NUR ---
Nutrition follow-up: Visited with pt re: food preferences. Pt states she has not been getting what she orders for meals. Reviewed selective menu with pt and made sure kitchen staff picks pts menu up every morning. Visited with pt during breakfast today and pt received correct meal Pts po intake ~25% at this time. Labs reviewed Wt: 124# RDN following.
--- NOTE | 2019-03-19 14:31 | MORECARE ---
CASE MANAGEMENT DISCHARGE SUMMARY PATIENT: GIANNA ANTUNEZ UNIT: [id number] ADM DATE: 03/11/19 AGE: 78 : 39 SEX: F ROOM/BED: D.2211 AUTHOR: MAXIMILIANO LOPEZ PHYSICIAN: REFERRING PHYSICIAN: ROJELIO LOO MD DATE OF SERVICE: 03/19/19 Discharge Plan Patient Name: GIANNA ANTUNEZ Facility: [facility]:[place] : 1940 Planned Disposition: Home Health Service Anticipated Discharge Date: Discharge Date: Expected LOS: Initial Reviewer: [email or web address] Initial Review Date: 03/11/2019 Generated: 03/19/19 3:30 pm Comments DCP- Discharge Planning Updated by [email or web address]: Marlin Macedo on 03/18/19 11:[address] LIAT WITH [facility] STATED THAT THEY ARE WAITING ON [facility]. WHEN THEY RECEIVE AUTH SHE WILL CALL ME. I EXPLAINED TO HER THAT I HAVE DC ORDERS CM TO FOLLOW IMM WAS SERVED AND EXPLAINED TO PATIENT THIS AM AT 0940. COPY GIVEN TO HER AND ALSO PLACED IN CHART DCP- Discharge Planning Updated by [email or web address]: Marlin Macedo on 03/17/19 1:[address] PATIENT WAS DENIED INPATIENT REHAB, SPOKE WITH PATIENT AND SHE WOULD LIKE TO TRY [facility], ALEJANDRA SIGNED AND PLACED IN CHART WILL SEND OVER REFERRAL DCP- Discharge Planning Updated by [email or web address]: Marlin Macedo on 03/13/19 1:[address] Patient Name: GIANNA ANTUNEZ Admission Status: ER Accout number: [id number] Admission Date: 03-11-2019 : 1940 Admission Diagnosis: Attending: ROJELIO LOO Current LOS: 2 Anticipated DC Date: Planned Disposition: Home Health Service Primary Insurance: [facility] MEDICARE SOLUTIONS Discharge Planning Comments: CM met with patient to complete initial dc planning assessment. CM educated patient on the CM role and verbal consent given by patient to complete assessment. Patient lives at home at [facility]. At discharge patient talked about going home and feels this is a safe discharge. I am not sure that will be able to happen. She did not understand about inpatient rehab vs home with home health. She would like to do PT at Dr Loo's office. CM discussed availability of home health, rehab services, and medical equipment. She has a cane at home. Will see how she does with PT and OT. Patient denied known discharge needs at this time. CM will continue to follow and will assist as needed with dc plans/needs. Cat Wagon Operator: Marlin Macedo DCPIA - Discharge Planning Initial Assessment Updated by [email or web address]: Marlin Macedo on 03/13/19 2:48 pm * Is the patient Alert and Oriented? Yes * How many steps to enter\exit or inside your home? * PCP EZE * Pharmacy [facility] * Preadmission Environment [facility] Apartment * Other Environment [facility] * ADLs Independent * Equipment Cane * List name and contact numbers for known caregivers / representatives who currently or will assist patient after discharge: TERENCE JESSICA [phone] * Verbal permission to speak to the caregivers and representatives has been obtained from the patient. N/A * Community resources currently utilized Other * Please name any agencies selected above. [facility] * Additional services required to return to the preadmission environment? Yes * Can the patient safely return to the preadmission environment? No * Has this patient been hospitalized within the prior 30 days at any hospital? No External Providers External Provider: [facility] Next Contact Date: Service Request Date: Service Type: Resolution: Reviewer: Comments: Coverage Notice Reviewer: [id number] Marcus Macedo Notice Issued Date-Time: 03/17/2019 14:45 Notice Type: Patient Choice Letter Notice Delivered To: Patient Relationship to Patient: Cement Worker Name: Delivery Method: HAND - Hand Delivered Marlene Days: Prior Verbal Notification: Recipient Understood Notice: Yes Recipient Signature: Yes Med Rec Note Co-signed by Attending: Coverage Notice Comment: Reviewer: [id number] Marcus Macedo Notice Issued Date-Time: 03/18/2019 9:40 Notice Type: IM Discharge Notice Notice Delivered To: Patient Relationship to Patient: Cement Worker Name: Delivery Method: HAND - Hand Delivered Marlene Days: Prior Verbal Notification: Recipient Understood Notice: Yes Recipient Signature: Yes Med Rec Note Co-signed by Attending: Coverage Notice Comment: Last DP export: 03/18/19 11:14 a Patient Name: GIANNA ANTUNEZ Page 37994 at 1431 All edits/amendments must be made on the electronic document DICTATION DATE: 03/19/191429 JANITOR CUSTODIAN: CLEO 03/19/191429 RPT#: [id number] DC DATE: STATUS: ADM IN [facility] [address] [place] [address] END OF REPORT
--- NOTE | 2019-03-19 16:44 | NUR ---
OT NOTE: PTS PARTIAL DENTURES ARE MISSING AND PT IS UPSET. NURSING AWARE. PT COMPLETED BED MOB TASKS WITH MOD A. PT COMPLETED GROOMING TASKS WITH SET UP FOR HAIR GROOMING AND FACE WASH AT [facility]. THANK YOU, ALFA GUERRA
[2019-03-19 16:45] VITALS: BP 105/41
[2019-03-19 20:00] VITALS: BP 108/48
--- NOTE | 2019-03-19 20:00 | NUR ---
ALERT AND ORIENTED X4. IRRITABLE WITH STAFF. LYING IN BED. RESP EVEN AND NONLABORED. GOMEZ CATH PATENT AND DRAINING YELLOW URINE. PEDAL PULSES STRONG BILAT. 1+ EDEMA TO BLE. REFUSES TO WEAR SCDS. MEPILEX TO COCCYX. NS @ 50 ML/HR INFUSING IN LT FOREARM. RATES PAIN IN LT HIP 5. CL IN REACH. ALEXANDER ALARM ON.
[2019-03-20] VITALS: BP 143/55
[2019-03-20 04:00] VITALS: BP 141/72
--- NOTE | 2019-03-20 04:09 | NUR ---
HAS RESTED WELL SO FAR THIS SHIFT. NO DISTRESS. CL IN REACH.
--- NOTE | 2019-03-20 08:01 | NUR ---
AWAKE AND ALERT. ORIENTED X3. LUNGS ARE CLEAR BILATERALLY, NO COUGH NOTED. SKIN IS INTACT WITHOUT REDNESS EXCEPT INCISION TO LEFT HIP WHICH HAS A DRY INTACT DRESSING IN PLACE. IV TO RIGHT FOREARM IS PATENT WTIHOUT REDNESS AT INSERTION SITE. GOMEZ PATENT WITH CLEAR YELLOW URINE. DENIES NEEDS.
[2019-03-20 09:42] VITALS: BP 126/58
--- NOTE | 2019-03-20 10:00 | NUR ---
AMBULATED IN HALLWAY [facility] PT. DID WELL. UP IN CHAIR AT BEDSIDE. DENIES NEEDS.
--- NOTE | 2019-03-20 12:42 | MORECARE ---
CASE MANAGEMENT DISCHARGE SUMMARY PATIENT: GIANNA ANTUNEZ UNIT: [id number] ADM DATE: 03/11/19 AGE: 78 : 39 SEX: F ROOM/BED: D.2211 AUTHOR: MAXIMILIANO LOPEZ PHYSICIAN: REFERRING PHYSICIAN: ROJELIO LOO MD DATE OF SERVICE: 03/20/19 Discharge Plan Patient Name: GIANNA ANTUNEZ Facility: [facility]:[place] : 1940 Planned Disposition: Home Health Service Anticipated Discharge Date: Discharge Date: Expected LOS: Initial Reviewer: [email or web address] Initial Review Date: 03/11/2019 Generated: 03/20/19 1:42 pm Comments DCP- Discharge Planning Updated by [email or web address]: Marlin Macedo on 03/19/19 1:[address] RECEIVED A CALL FROM LIAT WITH [facility] AND SHE STATED THAT THEY ARE NOT IN NETWORK WITH HER INSURANCE AND THE CLOSEST FACILITY IS [facility], I WENT AND SPOKE WITH PATIENT AND SHE IS OK WITH ME SENDING A REFERRAL WITH TO THEM, REFERRAL SENT EITAN WITH [facility] IS HERE SPEAKING WITH PATIENT DCP- Discharge Planning Updated by [id number]: Marlin Macedo on 03/18/19 11:[address] LIAT WITH [facility] STATED THAT THEY ARE WAITING ON [facility]. WHEN THEY RECEIVE AUTH SHE WILL CALL ME. I EXPLAINED TO HER THAT I HAVE DC ORDERS CM TO FOLLOW IMM WAS SERVED AND EXPLAINED TO PATIENT THIS AM AT 0940. COPY GIVEN TO HER AND ALSO PLACED IN CHART DCP- Discharge Planning Updated by [email or web address]: Marlin Macedo on 03/17/19 1:[address] PATIENT WAS DENIED INPATIENT REHAB, SPOKE WITH PATIENT AND SHE WOULD LIKE TO TRY [facility], ALEJANDRA SIGNED AND PLACED IN CHART WILL SEND OVER REFERRAL DCP- Discharge Planning Updated by [email or web address]: Marlin Macedo on 03/13/19 1:[address] Patient Name: GIANNA ANTUNEZ Admission Status: ER Accout number: [id number] Admission Date: 03-11-2019 : 1940 Admission Diagnosis: Attending: ROJELIO LOO Current LOS: 2 Anticipated DC Date: Planned Disposition: Home Health Service Primary Insurance: [facility] MEDICARE SOLUTIONS Discharge Planning Comments: CM met with patient to complete initial dc planning assessment. CM educated patient on the CM role and verbal consent given by patient to complete assessment. Patient lives at home at [facility]. At discharge patient talked about going home and feels this is a safe discharge. I am not sure that will be able to happen. She did not understand about inpatient rehab vs home with home health. She would like to do PT at Dr Loo's office. CM discussed availability of home health, rehab services, and medical equipment. She has a cane at home. Will see how she does with PT and OT. Patient denied known discharge needs at this time. CM will continue to follow and will assist as needed with dc plans/needs. Gm/Svp Global Publisher Business: Marlin Macedo DCPIA - Discharge Planning Initial Assessment Updated by [email or web address]: Marlin Macedo on 03/13/19 2:48 pm * Is the patient Alert and Oriented? Yes * How many steps to enter\exit or inside your home? * PCP EZE * Pharmacy [facility] * Preadmission Environment Independent [facility] Apartment * Other Environment [facility] * ADLs Independent * Equipment Cane * List name and contact numbers for known caregivers / representatives who currently or will assist patient after discharge: TERENCE LOPEZ [phone] * Verbal permission to speak to the caregivers and representatives has been obtained from the patient. N/A * Community resources currently utilized Other * Please name any agencies selected above. [facility] * Additional services required to return to the preadmission environment? Yes * Can the patient safely return to the preadmission environment? No * Has this patient been hospitalized within the prior 30 days at any hospital? No Coverage Notice Reviewer: [id number] Marcus Macedo Notice Issued Date-Time: 03/17/2019 14:45 Notice Type: Patient Choice Letter Notice Delivered To: Patient Relationship to Patient: Turbine Technician Name: Delivery Method: HAND - Hand Delivered Marlene Days: Prior Verbal Notification: Recipient Understood Notice: Yes Recipient Signature: Yes Med Rec Note Co-signed by Attending: Coverage Notice Comment: Reviewer: [id number] Marcus Macedo Notice Issued Date-Time: 03/18/2019 9:40 Notice Type: IM Discharge Notice Notice Delivered To: Patient Relationship to Patient: Turbine Technician Name: Delivery Method: HAND - Hand Delivered Marlene Days: Prior Verbal Notification: Recipient Understood Notice: Yes Recipient Signature: Yes Med Rec Note Co-signed by Attending: Coverage Notice Comment: Last DP export: 03/19/19 1:31 p Patient Name: GIANNA ANTUNEZ Page [phone] at 1242 All edits/amendments must be made on the electronic document DICTATION DATE: 03/20/19 124 PACKAGE DYE STAND LOADER: CLEO 03/20/19 1242 RPT#: [id number] DC DATE: STATUS: ADM IN [facility] [address] [place] [address] END OF REPORT
--- NOTE | 2019-03-20 12:52 | MORECARE ---
CASE MANAGEMENT DISCHARGE SUMMARY PATIENT: GIANNA ANTUNEZ UNIT: [id number] ADM DATE: 03/11/19 AGE: 78 : 39 SEX: F ROOM/BED: D.2211 AUTHOR: MAXIMILIANO LOPEZ PHYSICIAN: REFERRING PHYSICIAN: ROJELIO LOO MD DATE OF SERVICE: 03/20/19 Discharge Plan Patient Name: GIANNA ANTUNEZ Facility: [facility]:[place] : 1940 Planned Disposition: Home Health Service Anticipated Discharge Date: Discharge Date: Expected LOS: Initial Reviewer: [email or web address] Initial Review Date: 03/11/2019 Generated: 03/20/19 1:52 pm Comments DCP- Discharge Planning Updated by [id number]: Marlin Macedo on 03/20/19 11:[address] Called [facility] to get an update for auth, I spoke with Shelley and she stated that they have not heard anything back. They would call again this afternoon. CM to follow and assist DCP- Discharge Planning Updated by [id number]: Marlin Macedo on 03/19/19 1:[address] RECEIVED A CALL FROM LIAT WITH [facility] AND SHE STATED THAT THEY ARE NOT IN NETWORK WITH HER INSURANCE AND THE CLOSEST FACILITY IS [facility], I WENT AND SPOKE WITH PATIENT AND SHE IS OK WITH ME SENDING A REFERRAL WITH TO THEM, REFERRAL SENT EITAN WITH [facility] IS HERE SPEAKING WITH PATIENT DCP- Discharge Planning Updated by [id number]: Marlni Macedo on 03/18/19 11:[address] LIAT WITH [facility] STATED THAT THEY ARE WAITING ON [facility]. WHEN THEY RECEIVE AUTH SHE WILL CALL ME. I EXPLAINED TO HER THAT I HAVE DC ORDERS CM TO FOLLOW IMM WAS SERVED AND EXPLAINED TO PATIENT THIS AM AT 0940. COPY GIVEN TO HER AND ALSO PLACED IN CHART DCP- Discharge Planning Updated by [email or web address]: Marlin Macedo on 03/17/19 1:[address] PATIENT WAS DENIED INPATIENT REHAB, SPOKE WITH PATIENT AND SHE WOULD LIKE TO [facility], ALEJANDRA SIGNED AND PLACED IN CHART WILL SEND OVER REFERRAL DCP- Discharge Planning Updated by [id number]: Marlin Macedo on 03/13/19 1:[address] Patient Name: GIANNA ANTUNEZ Admission Status: ER Accout number: [id number] Admission Date: 03-11-2019 : 1940 Admission Diagnosis: Attending: ROJELIO LOO Current LOS: 2 Anticipated DC Date: Planned Disposition: Home Health Service Primary Insurance: [facility] MEDICARE SOLUTIONS Discharge Planning Comments: CM met with patient to complete initial dc planning assessment. CM educated patient on the CM role and verbal consent given by patient to complete assessment. Patient lives at home at [facility]. At discharge patient talked about going home and feels this is a safe discharge. I am not sure that will be able to happen. She did not understand about inpatient rehab vs home with home health. She would like to do PT at Dr Loo's office. CM discussed availability of home health, rehab services, and medical equipment. She has a cane at home. Will see how she does with PT and OT. Patient denied known discharge needs at this time. CM will continue to follow and will assist as needed with dc plans/needs. Informatica Developer: Marlin Macedo DCPIA - Discharge Planning Initial Assessment Updated by [id number]: Marlin Macedo on 03/13/19 2:48 pm * Is the patient Alert and Oriented? Yes * How many steps to enter\exit or inside your home? * PCP EZE * Pharmacy [facility] * Preadmission Environment [facility]ment * Other Environment [facility] * ADLs Independent * Equipment Cane * List name and contact numbers for known caregivers / representatives who currently or will assist patient after discharge: TERENCE LOPEZ [phone] * Verbal permission to speak to the caregivers and representatives has been obtained from the patient. N/A * Community resources currently utilized Other * Please name any agencies selected above. [facility] * Additional services required to return to the preadmission environment? Yes * Can the patient safely return to the preadmission environment? No * Has this patient been hospitalized within the prior 30 days at any hospital? No Coverage Notice Reviewer: [id number] - Marlin Macedo Notice Issued Date-Time: 03/17/2019 14:45 Notice Type: Patient Choice Letter Notice Delivered To: Patient Relationship to Patient: Senior Sales Representative Name: Delivery Method: HAND - Hand Delivered Marlene Days: Prior Verbal Notification: Recipient Understood Notice: Yes Recipient Signature: Yes Med Rec Note Co-signed by Attending: Coverage Notice Comment: Reviewer: [id number] Marcus Macedo Notice Issued Date-Time: 03/18/2019 9:40 Notice Type: IM Discharge Notice Notice Delivered To: Patient Relationship to Patient: Senior Sales Representative Name: Delivery Method: HAND - Hand Delivered Marlene Days: Prior Verbal Notification: Recipient Understood Notice: Yes Recipient Signature: Yes Med Rec Note Co-signed by Attending: Coverage Notice Comment: Last DP export: 03/20/19 11:42 a Patient Name: GIANNA ANTUNEZ Page 60589 at 1252 All edits/amendments must be made on the electronic document DICTATION DATE: 03/20/19 1252 RENDERER: CLEO 03/20/19 1252 RPT#: [id number] DC DATE: STATUS: ADM IN [facility] [address] [place] [address] END OF REPORT
[2019-03-20 13:05] VITALS: BP 119/63
--- NOTE | 2019-03-20 15:00 | NUR ---
RESTING QUIETLY IN BED. DENIES NEEDS.
--- NOTE | 2019-03-20 15:24 | MORECARE ---
CASE MANAGEMENT DISCHARGE SUMMARY PATIENT: GIANNA ANTUNEZ UNIT: [id number] ADM DATE: 03/11/19 AGE: 78 : 39 SEX: F ROOM/BED: D.2211 AUTHOR: MAXIMILIANO LOPEZ PHYSICIAN: REFERRING PHYSICIAN: ROJELIO LOO MD DATE OF SERVICE: 03/20/19 Discharge Plan Patient Name: GIANNA ANTUNEZ Facility: [facility]:[place] : 1940 Planned Disposition: Home Health Service Anticipated Discharge Date: Discharge Date: Expected LOS: Initial Reviewer: [id number] Initial Review Date: 03/11/2019 Generated: 03/20/19 4:24 pm Comments DCP- Discharge Planning Updated by [email or web address]: Marlin Macedo on 03/20/19 2:[address] Spoke with Jillian with [facility] about the "denial" I received from [facility]. Jillian stated that it was submitted incorrectly. She is going to talk to her manager supply to get this fixed and expedite this claim to get an answer for skilled. CM to follow DCP- Discharge Planning Updated by [email or web address]: Marlin Macedo on 03/20/19 11:[address] Called [facility] to get an update for auth, I spoke with Shelley and she stated that they have not heard anything back. They would call again this afternoon. CM to follow and assist DCP- Discharge Planning Updated by [email or web address]: Marlin Macedo on 03/19/19 1:[address] RECEIVED A CALL FROM LIAT WITH [facility] AND SHE STATED THAT THEY ARE NOT IN NETWORK WITH HER INSURANCE AND THE CLOSEST FACILITY IS [facility], I WENT AND SPOKE WITH PATIENT AND SHE IS OK WITH ME SENDING A REFERRAL WITH TO THEM, REFERRAL SENT EITAN WITH [facility] IS HERE SPEAKING WITH PATIENT DCP- Discharge Planning Updated by [email or web address]: Marlin Macedo on 03/18/19 11:[address] LIAT WITH [facility] STATED THAT THEY ARE WAITING ON [facility]. WHEN THEY RECEIVE AUTH SHE WILL CALL ME. I EXPLAINED TO HER THAT I HAVE DC ORDERS CM TO FOLLOW IMM WAS SERVED AND EXPLAINED TO PATIENT THIS AM AT 0940. COPY GIVEN TO HER AND ALSO PLACED IN CHART DCP- Discharge Planning Updated by [id number]: Marlin Macedo on 03/17/19 1:[address] PATIENT WAS DENIED INPATIENT REHAB, SPOKE WITH PATIENT AND SHE WOULD LIKE TO TRY [facility], ALEJANDRA SIGNED AND PLACED IN CHART WILL SEND OVER REFERRAL DCP- Discharge Planning Updated by [id number]: Marlin Macedo on 03/13/19 1:[address] Patient Name: GIANNA ANTUNEZ Admission Status: ER Accout number: [id number] Admission Date: 03-11-2019 : 1940 Admission Diagnosis: Attending: ROJELIO LOO Current LOS: 2 Anticipated DC Date: Planned Disposition: Home Health Service Primary Insurance: [facility] MEDICARE SOLUTIONS Discharge Planning Comments: CM met with patient to complete initial dc planning assessment. CM educated patient on the CM role and verbal consent given by patient to complete assessment. Patient lives at home at [facility]. At discharge patient talked about going home and feels this is a safe discharge. I am not sure that will be able to happen. She did not understand about inpatient rehab vs home with home health. She would like to do PT at Dr Loo's office. CM discussed availability of home health, rehab services, and medical equipment. She has a cane at home. Will see how she does with PT and OT. Patient denied known discharge needs at this time. CM will continue to follow and will assist as needed with dc plans/needs. Ski Edge Painter: Marlin Leken DCPIA - Discharge Planning Initial Assessment Updated by [email or web address]: Marlin Leken on 03/13/19 2:48 pm * Is the patient Alert and Oriented? Yes * How many steps to enter\\exit or inside your home? * PCP EZE * [facility] * Preadmission Environment Independent [facility] [address] * Other Environment [facility] * ADLs Independent * Equipment Cane * List name and contact numbers for known caregivers / representatives who currently or will assist patient after discharge: TERENCE LOPEZ [phone] * Verbal permission to speak to the caregivers and representatives has been obtained from the patient. N/A * Community resources currently utilized Other * Please name any agencies selected above. [facility] * Additional services required to return to the preadmission environment? Yes * Can the patient safely return to the preadmission environment? No * Has this patient been hospitalized within the prior 30 days at any hospital? No Coverage Notice Reviewer: [id number] Marcus Macedo Notice Issued Date-Time: 03/17/2019 14:45 Notice Type: Patient Choice Letter Notice Delivered To: Patient Relationship to Patient: Flow Machine Operator Name: Delivery Method: HAND - Hand Delivered Marlene Days: Prior Verbal Notification: Recipient Understood Notice: Yes Recipient Signature: Yes Med Rec Note Co-signed by Attending: Coverage Notice Comment: Reviewer: [id number] Macedo Notice Issued Date-Time: 03/18/2019 9:40 Notice Type: IM Discharge Notice Notice Delivered To: Patient Relationship to Patient: Flow Machine Operator Name: Delivery Method: HAND - Hand Delivered Marlene Days: Prior Verbal Notification: Recipient Understood Notice: Yes Recipient Signature: Yes Med Rec Note Co-signed by Attending: Coverage Notice Comment: Last DP export: 03/20/19 11:52 a Patient Name: GIANNA ANTUNEZ Page 58595 at 1524 All edits/amendments must be made on the electronic document DICTATION DATE: 03/20/19 1524 CORK INSULATION SETTER: CLEO 03/20/19 1524 RPT#: [id number] DC DATE: STATUS: ADM IN [facility] [address] [place] [address] END OF REPORT
--- NOTE | 2019-03-20 16:05 | NUR ---
OT NOTE: PT COMPLETED BED MOB WITH MIN A FOR SIDE ROLLING. PT COMPLETED BUE AROM EXS. PT COMPLETED GROOMING TASKS WITH SET UP. [facility] THANK YOU, ALFA GUERRA
[2019-03-20 16:48] VITALS: BP 125/56
--- NOTE | 2019-03-20 18:29 | NUR ---
SITTING UP IN BED EATING DINNER. NO C/O AT THIS TIME. DENIES NEEDS. NO CHANGES NOTED.
[2019-03-20 20:00] VITALS: BP 123/58
--- NOTE | 2019-03-20 20:00 | NUR ---
LYING IN BED TALKING TO VISITOR. ALERT AND ORIENTED X4. TEARFUL AT TIMES. DEPRESSED OVER PAST DEATHS OF CHILDREN. STATES SHE IS READY TO GO TO REHAB. RESP EVEN AND NONLABORED. GOMEZ CATH PATENT AND DRAINING CLEAR YELLOW URINE. MEPILEX DRSG NOTED TO COCCYX. DRSG TO LT HIP IS C/D/I. REFUSES TO WEAR SCDS. REPORTS PAIN IN LT HIP 7. ALEXANDER ALARM ON FOR PT SAFETY. NS @ 50 MLHR INFUSING IN RT FOREARM WITHOUT DIFF. SR EELVATED X2. CL IN REACH.
--- NOTE | 2019-03-20 20:40 | NUR ---
BED BATH AND LINENS CHANGED AT THIS TIME. MEPILEX APPLIED TO EXCORIATED AREAS ON COCCYX AND INNER BUTTOCKS. PT FANNY WELL. MEDICATED WITH TYLENOL FOR C/O PAIN IN LT HIP. VERY TALKATIVE WITH STAFF. ALEXANDER ALARM ON FOR PT SAFETY. SR ELEVATED X2. CL IN REACH.
[2019-03-21] VITALS: BP 107/50
[2019-03-21 04:00] VITALS: BP 114/58
[2019-03-21 08:47] VITALS: BP 127/62
[2019-03-21 13:38] VITALS: BP 103/61
--- NOTE | 2019-03-21 14:27 | MORECARE ---
CASE MANAGEMENT DISCHARGE SUMMARY PATIENT: GIANNA ANTUNEZ UNIT: [id number] ADM DATE: 03/11/19 AGE: 78 : 39 SEX: F ROOM/BED: D.2211 AUTHOR: MAXIMILIANO LOPEZ PHYSICIAN: REFERRING PHYSICIAN: ROJELIO LOO MD DATE OF SERVICE: 03/21/19 Discharge Plan Patient Name: GIANNA ANTUNEZ Facility: [facility]:[place] : 1940 Planned Disposition: Home Health Service Anticipated Discharge Date: Discharge Date: Expected LOS: Initial Reviewer: [id number] Initial Review Date: 03/11/2019 Generated: 03/21/19 3:27 pm Comments DCP- Discharge Planning Updated by [id number]: Marlin Macedo on 03/20/19 2:[address] Spoke with Jillian with [facility] about the "denial" I received from [place]. Jillian stated that it was submitted incorrectly. She is going to talk to her trucking manager to get this fixed and expedite this claim to get an answer for skilled. CM to follow DCP- Discharge Planning Updated by [id number]: Marlin Macedo on 03/20/19 11:[address] Called [facility] to get an update for auth, I spoke with Shelley and she stated that they have not heard anything back. They would call again this afternoon. CM to follow and assist DCP- Discharge Planning Updated by [id number]: Marlin Macedo on 03/19/19 1:[address] RECEIVED A CALL FROM LIAT WITH [facility] AND SHE STATED THAT THEY ARE NOT IN NETWORK WITH HER INSURANCE AND THE CLOSEST FACILITY IS [facility], I WENT AND SPOKE WITH PATIENT AND SHE IS OK WITH ME SENDING A REFERRAL WITH TO THEM, REFERRAL SENT EITAN WITH [place] IS HERE SPEAKING WITH PATIENT DCP- Discharge Planning Updated by [email or web address]: Marlin Macedo on 03/18/19 11:[address] LIAT WITH [facility] STATED THAT THEY ARE WAITING ON [facility]. WHEN THEY RECEIVE AUTH SHE WILL CALL ME. I EXPLAINED TO HER THAT I HAVE DC ORDERS CM TO FOLLOW IMM WAS SERVED AND EXPLAINED TO PATIENT THIS AM AT 0940. COPY GIVEN TO HER AND ALSO PLACED IN CHART DCP- Discharge Planning Updated by [email or web address]: Marlin Macedo on 03/17/19 1:[address] PATIENT WAS DENIED INPATIENT REHAB, SPOKE WITH PATIENT AND SHE WOULD LIKE TO TRY [facility], ALEJANDRA SIGNED AND PLACED IN CHART WILL SEND OVER REFERRAL DCP- Discharge Planning Updated by [id number]: Marlin Macedo on 03/13/19 1:[address] Patient Name: GIANNA ANTUNEZ Admission Status: ER Accout number: [id number] Admission Date: 03-11-2019 : 1940 Admission Diagnosis: Attending: ROJELIO LOO Current LOS: 2 Anticipated DC Date: Planned Disposition: Home Health Service Primary Insurance: [facility] MEDICARE SOLUTIONS Discharge Planning Comments: CM met with patient to complete initial dc planning assessment. CM educated patient on the CM role and verbal consent given by patient to complete assessment. Patient lives at home at [facility]. At discharge patient talked about going home and feels this is a safe discharge. I am not sure that will be able to happen. She did not understand about inpatient rehab vs home with home health. She would like to do PT at Dr Loo's office. CM discussed availability of home health, rehab services, and medical equipment. She has a cane at home. Will see how she does with PT and OT. Patient denied known discharge needs at this time. CM will continue to follow and will assist as needed with dc plans/needs. Distribution Center Manager: Marlin Leken DCPIA - Discharge Planning Initial Assessment Updated by [email or web address]: Marlin Leken on 03/13/19 2:48 pm * Is the patient Alert and Oriented? Yes * How many steps to enter\\exit or inside your home? * PCP EZE * Pharmacy [facility] * Preadmission Environment Independent [facility] Apartment * Other Environment [facility] * ADLs Independent * Equipment Cane * List name and contact numbers for known caregivers / representatives who currently or will assist patient after discharge: TERENCE LOPEZ [phone] * Verbal permission to speak to the caregivers and representatives has been obtained from the patient. N/A * Community resources currently utilized Other * Please name any agencies selected above. [facility] * Additional services required to return to the preadmission environment? Yes * Can the patient safely return to the preadmission environment? No * Has this patient been hospitalized within the prior 30 days at any hospital? No Coverage Notice Reviewer: [id number] Marcus Macedo Notice Issued Date-Time: 03/17/2019 14:45 Notice Type: Patient Choice Letter Notice Delivered To: Patient Relationship to Patient: Middle School Spanish Teacher Name: Delivery Method: HAND - Hand Delivered Marlene Days: Prior Verbal Notification: Recipient Understood Notice: Yes Recipient Signature: Yes Med Rec Note Co-signed by Attending: Coverage Notice Comment: Reviewer: [id number] Macedo Notice Issued Date-Time: 03/18/2019 9:40 Notice Type: IM Discharge Notice Notice Delivered To: Patient Relationship to Patient: Middle School Spanish Teacher Name: Delivery Method: HAND - Hand Delivered Marlene Days: Prior Verbal Notification: Recipient Understood Notice: Yes Recipient Signature: Yes Med Rec Note Co-signed by Attending: Coverage Notice Comment: Last DP export: 03/20/19 2:24 p Patient Name: GIANNA ANTUNEZ Page [id number] at 1427 All edits/amendments must be made on the electronic document DICTATION DATE: 03/21/191426 AOC DIRECTOR COMBAT OPERATIONS OFFICER: CLEO 03/21/19 142 RPT#: [id number] DC DATE: STATUS: ADM IN [facility] [address] [place] [address] END OF REPORT
--- NOTE | 2019-03-21 14:46 | MORECARE ---
CASE MANAGEMENT DISCHARGE SUMMARY PATIENT: GIANNA ANTUNEZ UNIT: [id number] ADM DATE: 03/11/19 AGE: 78 : 39 SEX: F ROOM/BED: D.2211 AUTHOR: MAXIMILIANO LOPEZ PHYSICIAN: REFERRING PHYSICIAN: ROJELIO LOO MD DATE OF SERVICE: 03/21/19 Discharge Plan Patient Name: GIANNA ANTUNEZ Facility: [facility]:[place] : 1940 Planned Disposition: Home Health Service Anticipated Discharge Date: Discharge Date: Expected LOS: Initial Reviewer: [email or web address] Initial Review Date: 03/11/2019 Generated: 03/21/19 3:46 pm Comments DCP- Discharge Planning Updated by [email or web address]: Marlin Macedo on 03/21/19 1:[address] I have received Auth for [facility], went to tell patient this morning about the auth and she stated that she is NOT going there, it is too far out and she wants [facility]. She stated that she has spoken to her insurance commissioner and he is going to change her insurance and he will get her insurance that [facility] will accept. She called the her agent while I was in the room and he stated that he would set her up with insurance that [facility] accepts and it should go into affect on Mar 25. DCP- Discharge Planning Updated by [email or web address]: Marlin Macedo on 03/20/19 2:[address] Spoke with Jillian with [facility] about the "denial" I received from [place]. Jillian stated that it was submitted incorrectly. She is going to talk to her truck service manager to get this fixed and expedite this claim to get an answer for skilled. CM to follow DCP- Discharge Planning Updated by [id number]: Marlin Macedo on 03/20/19 11:[address] [facility] to get an update for auth, I spoke with Shelley and she stated that they have not heard anything back. They would call again this afternoon. CM to follow and assist DCP- Discharge Planning Updated by [id number]: Marlin Macedo on 03/19/19 1:[address] RECEIVED A CALL FROM LIAT WITH [facility] AND SHE STATED THAT THEY ARE NOT IN NETWORK WITH HER INSURANCE AND THE CLOSEST FACILITY IS [facility], I WENT AND SPOKE WITH PATIENT AND SHE IS OK WITH ME SENDING A REFERRAL WITH TO THEM, REFERRAL SENT EITAN WITH [facility] IS HERE SPEAKING WITH PATIENT DCP- Discharge Planning Updated by [id number]: Marlin Macedo on 03/18/19 11:[address] LIAT WITH [facility] STATED THAT THEY ARE WAITING ON [facility]. WHEN THEY RECEIVE AUTH SHE WILL CALL ME. I EXPLAINED TO HER THAT I HAVE DC ORDERS CM TO FOLLOW IMM WAS SERVED AND EXPLAINED TO PATIENT THIS AM AT 0940. COPY GIVEN TO HER AND ALSO PLACED IN CHART DCP- Discharge Planning Updated by [id number]: Marlin Macedo on 03/17/19 1:[address] PATIENT WAS DENIED INPATIENT REHAB, SPOKE WITH PATIENT AND SHE WOULD LIKE TO TRY [facility], ALEJANDRA SIGNED AND PLACED IN CHART WILL SEND OVER REFERRAL DCP- Discharge Planning Updated by [email or web address]: Marlin Macedo on 03/13/19 1:[address] Patient Name: GIANNA ANTUNEZ Admission Status: ER Accout number: [id number] Admission Date: 03-11-2019 : 1940 Admission Diagnosis: Attending: ROJELIO LOO Current LOS: 2 Anticipated DC Date: Planned Disposition: Home Health Service Primary Insurance: [facility] MEDICARE SOLUTIONS Discharge Planning Comments: CM met with patient to complete initial dc planning assessment. CM educated patient on the CM role and verbal consent given by patient to complete assessment. Patient lives at home at [facility]. At discharge patient talked about going home and feels this is a safe discharge. I am not sure that will be able to happen. She did not understand about inpatient rehab vs home with home health. She would like to do PT at Dr Loo's office. CM discussed availability of home health, rehab services, and medical equipment. She has a cane at home. Will see how she does with PT and OT. Patient denied known discharge needs at this time. CM will continue to follow and will assist as needed with dc plans/needs. Pastry Wrapper: Marlin Macedo DCPIA - Discharge Planning Initial Assessment Updated by [email or web address]: Marlin Macedo on 9/19/19 2:48 pm * Is the patient Alert and Oriented? Yes * How many steps to enter\\exit or inside your home? * PCP EZE * [facility]acy [facility] * Preadmission Environment Independent [facility] Apart[facility] * Other Environment [facility] * ADLs Independent * Equipment Cane * List name and contact numbers for known caregivers / representatives who currently or will assist patient after discharge: TERENCE LOPEZ [phone] * Verbal permission to speak to the caregivers and representatives has been obtained from the patient. N/A * Community resources currently utilized Other * Please name any agencies selected above. [facility] * Additional services required to return to the preadmission environment? Yes * Can the patient safely return to the preadmission environment? No * Has this patient been hospitalized within the prior 30 days at any hospital? No Coverage Notice Reviewer: [email or web address] Marcus Macedo Notice Issued Date-Time: 03/17/2019 14:45 Notice Type: Patient Choice Letter Notice Delivered To: Patient Relationship to Patient: Production Truck Driver Name: Delivery Method: HAND - Hand Delivered Marlene Days: Prior Verbal Notification: Recipient Understood Notice: Yes Recipient Signature: Yes Med Rec Note Co-signed by Attending: Coverage Notice Comment: Reviewer: [id number] Marcus Macedo Notice Issued Date-Time: 03/18/2019 9:40 Notice Type: IM Discharge Notice Notice Delivered To: Patient Relationship to Patient: Production Truck Driver Name: Delivery Method: HAND - Hand Delivered Marlene Days: Prior Verbal Notification: Recipient Understood Notice: Yes Recipient Signature: Yes Med Rec Note Co-signed by Attending: Coverage Notice Comment: Last DP export: 03/21/19 1:27 p Patient Name: GIANNA ANTUNEZ Page [id number] at 1446 All edits/amendments must be made on the electronic document DICTATION DATE: 03/21/19 1446 LOG TURNER: CLEO 03/21/19 1446 RPT#: [id number] [place] DATE: STATUS: ADM IN [facility] [address] [place] [address] END OF REPORT
--- NOTE | 2019-03-21 14:57 | NUR ---
OT NOTE:PT COMPLETED GROOMING TASKS WITH SET UP. PT COMPLETED BED MOB TASKS WITH MIN/MOD A. THANK YOU, ALFA GUERRA
[2019-03-21] MEDS ORDERED: HYDROCODONE-A1 UDTA2 PO (15:28)
--- NOTE | 2019-03-21 16:32 | MORECARE ---
CASE MANAGEMENT DISCHARGE SUMMARY PATIENT: GIANNA ANTUNEZ UNIT: [id number] ADM DATE: 03/11/19 AGE: 78 : 39 SEX: F ROOM/BED: D.2211 AUTHOR: MAXIMILIANO LOPEZ PHYSICIAN: REFERRING PHYSICIAN: ROJELIO LOO MD DATE OF SERVICE: 03/21/19 Discharge Plan Patient Name: GIANNA ANTUNEZ Facility: [facility]:[place] : 1940 Planned Disposition: Home Health Service Anticipated Discharge Date: Discharge Date: Expected LOS: Initial Reviewer: [email or web address] Initial Review Date: 03/11/2019 Generated: 03/21/19 5:31 pm Comments DCP- Discharge Planning Updated by [id number]: Marlin Macedo on 03/21/19 3:[address] Patient now wants to go to [facility]. [facility] will transport her and should be here at 1630. IMM served and signed again DCP- Discharge Planning Updated by [email or web address]: Marlin Macedo on 03/21/19 1:[address] I have received Auth for [facility], went to tell patient this morning about the auth and she stated that she is NOT going there, it is too far out and [facility] She stated that she has spoken to her insurance sales associate and he is going to change her insurance and he will get her insurance that [facility] will accept. She called the her agent while I was in the room and he stated that he would set her up with insurance that [facility] accepts and it should go into affect on Mar 25. DCP- Discharge Planning Updated by [id number]: Marlin Macedo on 03/20/19 2:[address] Spoke with Jillian with [facility] about the "denial" I received from [place]. Jillian stated that it was submitted incorrectly. She is going to talk to her manager recruitment to get this fixed and expedite this claim to get an answer for skilled. CM to follow DCP- Discharge Planning Updated by [id number]: Marlin Macedo on 03/20/19 11:[address] Called [facility] to get an update for auth, I spoke with Shelley and she stated that they have not heard anything back. They would call again this afternoon. CM to follow and assist DCP- Discharge Planning Updated by [email or web address]: Marlin Remington on 03/19/19 1:[address] RECEIVED A CALL FROM LIAT WITH [facility] AND SHE STATED THAT THEY ARE NOT IN NETWORK WITH HER INSURANCE AND THE CLOSEST FACILITY IS [facility], I WENT AND SPOKE WITH PATIENT AND SHE IS OK WITH ME SENDING A REFERRAL WITH TO THEM, [facility]IENT DCP- Discharge Planning Updated by [email or web address]: Marlin Macedo on 03/18/19 11:[address] LIAT WITH [facility] STATED THAT THEY ARE WAITING ON [facility]. WHEN THEY RECEIVE AUTH SHE WILL CALL ME. I EXPLAINED TO HER THAT I HAVE DC ORDERS CM TO FOLLOW IMM WAS SERVED AND EXPLAINED TO PATIENT THIS AM AT 0940. COPY GIVEN TO HER AND ALSO PLACED IN CHART DCP- Discharge Planning Updated by [email or web address]: Marlin Macedo on 03/17/19 1:[address] PATIENT WAS DENIED INPATIENT REHAB, SPOKE WITH PATIENT AND SHE WOULD LIKE TO TRY [facility], ALEJANDRA SIGNED AND PLACED IN CHART WILL SEND OVER REFERRAL DCP- Discharge Planning Updated by [email or web address]: Marlin Macedo on 03/13/19 1:[address] Patient Name: GIANNA ANTUNEZ Admission Status: ER Accout number: [id number] Admission Date: 03-11-2019 : 1940 Admission Diagnosis: Attending: ROJELIO LOO Current LOS: 2 Anticipated DC Date: Planned Disposition: Home Health Service Primary Insurance: [facility] MEDICARE SOLUTIONS Discharge Planning Comments: CM met with patient to complete initial dc planning assessment. CM educated patient on the CM role and verbal consent given by patient to complete assessment. Patient lives at home at [facility]. At discharge patient talked about going home and feels this is a safe discharge. I am not sure that will be able to happen. She did not understand about inpatient rehab vs home with home health. She would like to do PT at Dr Loo's office. CM discussed availability of home health, rehab services, and medical equipment. She has a cane at home. Will see how she does with PT and OT. Patient denied known discharge needs at this time. CM will continue to follow and will assist as needed with dc plans/needs. Hr Coordinator: Marlin Macedo DCPIA - Discharge Planning Initial Assessment Updated by [email or web address]: Marlin Macedo on 03/13/19 2:48 pm * Is the patient Alert and Oriented? Yes * How many steps to enter\\exit or inside your home? * PCP EZE * Pharmacy [facility] * Preadmission Environment [facility] * Other Environment [facility] * ADLs Independent * Equipment Cane * List name and contact numbers for known caregivers / representatives who currently or will assist patient after discharge: TERENCE LOPEZ [phone] * Verbal permission to speak to the caregivers and representatives has been obtained from the patient. N/A * Community resources currently utilized Other * Please name any agencies selected above. [facility] * Additional services required to return to the preadmission environment? Yes * Can the patient safely return to the preadmission environment? No * Has this patient been hospitalized within the prior 30 days at any hospital? No Coverage Notice Reviewer: [id number] Marcus Macedo Notice Issued Date-Time: 03/17/2019 14:45 Notice Type: Patient Choice Letter Notice Delivered To: Patient Relationship to Patient: Dough Molder Name: Delivery Method: HAND - Hand Delivered Marlene Days: Prior Verbal Notification: Recipient Understood Notice: Yes Recipient Signature: Yes Med Rec Note Co-signed by Attending: Coverage Notice Comment: Reviewer: [email or web address] Marcus Macedo Notice Issued Date-Time: 03/18/2019 9:40 Notice Type: IM Discharge Notice Notice Delivered To: Patient Relationship to Patient: Dough Molder Name: Delivery Method: HAND - Hand Delivered Marlene Days: Prior Verbal Notification: Recipient Understood Notice: Yes Recipient Signature: Yes Med Rec Note Co-signed by Attending: Coverage Notice Comment: Last DP export: 03/21/19 1:46 p Patient Name: GIANNA ANTUNEZ Page [id number] at 1632 All edits/amendments must be made on the electronic document DICTATION DATE: 03/21/19 1631 INSURANCE LOSS ADJUSTER: CLEO 03/21/19 1631 RPT#: [id number] DC DATE: STATUS: ADM IN [facility] [address] [place] [address] END OF REPORT
--- NOTE | 2019-03-21 17:35 | NUR ---
MARIS ALEMAN AT THIS TIME VOICE SOME UNDERSTANDING OF DC ORDERS. REPORT CALLED INTO [place] CHARGE NURSE.FC DC AND IV WITH TIP INTACT. STABLE CONDITION UPON DEPARTURE.
--- NOTE | 2019-03-24 08:44 | MORECARE ---
CASE MANAGEMENT DISCHARGE SUMMARY PATIENT: GIANNA ANTUNEZ UNIT: [id number] ADM DATE: 03/11/19 AGE: 78 : 39 SEX: F ROOM/BED: D.2211 AUTHOR: MAXIMILIANO LOPEZ PHYSICIAN: REFERRING PHYSICIAN: ROJELIO LOO MD DATE OF SERVICE: 03/24/19 Discharge Plan Patient Name: GIANNA ANTUNEZ Facility: [facility]:[place] : 1940 Planned Disposition: Home Health Service Anticipated Discharge Date: Discharge Date: 03/21/2019 Expected LOS: Initial Reviewer: [email or web address] Initial Review Date: 03/11/2019 Generated: 03/24/19 9:43 am Comments DCP- Discharge Planning Updated by [id number]: Marlin Macedo on 03/21/19 3:[address] Patient now wants to go to [facility]. [facility] will transport her and should be here at 1630. IMM served and signed again DCP- Discharge Planning Updated by [id number]: Marlin Macedo on 03/21/19 1:[address] I have received Auth for [facility], went to tell patient this morning about the auth and she stated that she is NOT going there, it is too far out and [facility]. She stated that she has spoken to her health insurance adjuster and he is going to change her insurance and he will get her insurance that [facility] will accept. She called the her agent while I was in the room and he stated that he would set her up with insurance that [facility] accepts and it should go into affect on Mar 25. DCP- Discharge Planning Updated by [id number]: Marlin Macedo on 03/20/19 2:[address] Spoke with Jillian with [facility] about the "denial" I received from [place]. Jillian stated that it was submitted incorrectly. She is going to talk to her it systems manager to get this fixed and expedite this claim to get an answer for skilled. CM to follow DCP- Discharge Planning Updated by [id number]: Marlin Macedo on 03/20/19 11:[address] Called [facility] to get an update for auth, I spoke with Shelley and she stated that they have not heard anything back. They would call again this afternoon. CM to follow and assist DCP- Discharge Planning Updated by [email or web address]: Marlin Macedo on 03/19/19 1:[address] RECEIVED A CALL FROM LIAT WITH [facility] AND SHE STATED THAT THEY ARE NOT IN NETWORK WITH HER INSURANCE AND THE CLOSEST FACILITY IS [facility], I WENT AND SPOKE WITH PATIENT AND SHE IS OK WITH ME SENDING A REFERRAL WITH TO THEM, REF[facility]IENT DCP- Discharge Planning Updated by [email or web address]: Marlin Macedo on 03/18/19 11:[address] LIAT WITH [facility] STATED THAT THEY ARE WAITING ON [facility]. WHEN THEY RECEIVE AUTH SHE WILL CALL ME. I EXPLAINED TO HER THAT I HAVE DC ORDERS CM TO FOLLOW IMM WAS SERVED AND EXPLAINED TO PATIENT THIS AM AT 0940. COPY GIVEN TO HER AND ALSO PLACED IN CHART DCP- Discharge Planning Updated by [email or web address]: Marlin Macedo on 03/17/19 1:[address] PATIENT WAS DENIED INPATIENT REHAB, SPOKE WITH PATIENT AND SHE WOULD LIKE TO TRY [facility], ALEJANDRA SIGNED AND PLACED IN CHART WILL SEND OVER REFERRAL DCP- Discharge Planning Updated by [email or web address]: Marlin Macedo on 03/13/19 1:[address] Patient Name: GIANNA ANTUNEZ Admission Status: ER Accout number: [id number] Admission Date: 03-11-2019 : 1940 Admission Diagnosis: Attending: ROJELIO LOO Current LOS: 2 Anticipated DC Date: Planned Disposition: Home Health Service Primary Insurance: [facility] MEDICARE SOLUTIONS Discharge Planning Comments: CM met with patient to complete initial dc planning assessment. CM educated patient on the CM role and verbal consent given by patient to complete assessment. Patient lives at home at [facility]. At discharge patient talked about going home and feels this is a safe discharge. I am not sure that will be able to happen. She did not understand about inpatient rehab vs home with home health. She would like to do PT at Dr Loo's office. CM discussed availability of home health, rehab services, and medical equipment. She has a cane at home. Will see how she does with PT and OT. Patient denied known discharge needs at this time. CM will continue to follow and will assist as needed with dc plans/needs. Clay Modeler: Marlin Macedo DCPIA - Discharge Planning Initial Assessment Updated by [email or web address]: Marlin Macedo on 03/13/19 2:48 pm * Is the patient Alert and Oriented? Yes * How many steps to enter\\exit or inside your home? * PCP E[facility] * Pharmacy [facility] * Preadmission Environment [facility] Apartment * Other Environment [facility] * ADLs Independent * Equipment Cane * List name and contact numbers for known caregivers / representatives who currently or will assist patient after discharge: TERENCE LOPEZ [phone] * Verbal permission to speak to the caregivers and representatives has been obtained from the patient. N/A * Community resources currently utilized Other * Please name any agencies selected above. [facility] * Additional services required to return to the preadmission environment? Yes * Can the patient safely return to the preadmission environment? No * Has this patient been hospitalized within the prior 30 days at any hospital? No Coverage Notice Reviewer: [id number] Marcus Macedo Notice Issued Date-Time: 03/17/2019 14:45 Notice Type: Patient Choice Letter Notice Delivered To: Patient Relationship to Patient: Agricultural Loan Officer Name: Delivery Method: HAND - Hand Delivered Marlene Days: Prior Verbal Notification: Recipient Understood Notice: Yes Recipient Signature: Yes Med Rec Note Co-signed by Attending: Coverage Notice Comment: Reviewer: [id number] Macedo Notice Issued Date-Time: 03/18/2019 9:40 Notice Type: IM Discharge Notice Notice Delivered To: Patient Relationship to Patient: Agricultural Loan Officer Name: Delivery Method: HAND - Hand Delivered Marlene Days: Prior Verbal Notification: Recipient Understood Notice: Yes Recipient Signature: Yes Med Rec Note Co-signed by Attending: Coverage Notice Comment: Reviewer: [email or web address] Marcus Macedo Notice Issued Date-Time: 03/21/2019 16:30 Notice Type: IM Discharge Notice Notice Delivered To: Patient Relationship to Patient: Agricultural Loan Officer Name: Delivery Method: HAND - Hand Delivered Marlene Days: Prior Verbal Notification: Recipient Understood Notice: Yes Recipient Signature: Yes Med Rec Note Co-signed by Attending: Coverage Notice Comment: Last DP export: 03/21/19 3:31 p Patient Name: GIANNA ANTUNEZ Page [id number] at 0844 All edits/amendments must be made on the electronic document DICTATION DATE: 03/24/19842 WORKERS COMPENSATION CLAIMS ANALYST: CLEO 03/24/19842 RPT#: [id number] DC DATE:03/21/19 STATUS: DIS IN [facility] [address] [facility] [place] [place] [address] END OF REPORT
== END 2019-03-21 17:36 | DRG 470 ==
LOC: D.ER 13:23 → D.MS 15:45
PROVIDERS: Family Medicine; Orthopaedic Surgery; ADMIT Family Medicine; ATTEND Family Medicine
PROC: 0SRS0J9 Replacement of Left Hip Joint, Femoral Surface with Synthetic Substitute, Cemented, Open Approach (ICD-10-PCS; principal; 2019-03-12 10:00)
DX: S72.002A Fracture of unspecified part of neck of left femur, initial encounter for closed fracture (principal); Z68.1 Body mass index [BMI] 19.9 or less, adult; F32.1 Major depressive disorder, single episode, moderate; W19.XXXA Unspecified fall, initial encounter; Y92.512 Supermarket, store or market as the place of occurrence of the external cause; I10 Essential (primary) hypertension; K21.9 Gastro-esophageal reflux disease without esophagitis; F41.9 Anxiety disorder, unspecified; M19.90 Unspecified osteoarthritis, unspecified site; M48.061 Spinal stenosis, lumbar region without neurogenic claudication; R63.4 Abnormal weight loss; I49.8 Other specified cardiac arrhythmias

== ENCOUNTER → 2019-08-18 08:04 | Outpatient (CLI) | payer MEDICARE ==
[2019-03-18 15:07] VITALS: BMI 20.8
== END | disposition home or self-care (01) ==
LOC: D.MRI 08:04
PROVIDERS: ATTEND Orthopaedic Surgery
DX: M48.061 Spinal stenosis, lumbar region without neurogenic claudication (principal)